=== PATIENT | male | born 1985 | race Caucasian/White ===

== ENCOUNTER 2017-06-04 18:27 | Emergency (ER) | payer OTHER ==
[2017-06-04] MEDS ORDERED: ALBUTEROL/IPRATROPIUM 1 VIAL SOL INH ONE (18:29)
[2017-06-04] MEDS ORDERED: SOLUMEDROL 125 MG/2 ML 125 MG/2 ML PDS IM ONE (18:30)
[2017-06-04] MEDS ORDERED: SOLUMEDROL 125 MG/2 ML 125 MG/2 ML PDS ONE (18:31)
[2017-06-04] MEDS ORDERED: ALBUTEROL/IPRATROPIUM 1 VIAL SOL ONE (18:31)
[2017-06-04 18:33] VITALS: O2SAT 100
[2017-06-04] MEDS ORDERED: PREDNISONE 20 MG TAB PO ONE (18:37)
[2017-06-04 19:18] VITALS: TEMP 97
[2017-06-04 19:36] VITALS: BP 148/82; PULSE 80; RESP 12
== END 2017-06-04 19:34 | disposition home or self-care (01) | DRG 203 ==
LOC: ED 18:27
DX: J45.909 Unspecified asthma, uncomplicated (principal)
CPT/HCPCS: 99283; J2930